=== PATIENT | male | born 1970 | race Caucasian/White ===

== ENCOUNTER → 2024-09-06 06:29 | Day surgery (SDC) | payer OTHER, SELFPAY | LOC: GI 06:29 | PROVIDERS: ATTENDING PHYSICIAN Internal Medicine Gastroenterology | DX: Z12.11 Encounter for screening for malignant neoplasm of colon (principal); K57.30 Diverticulosis of large intestine without perforation or abscess without bleeding; K64.8 Other hemorrhoids | CPT/HCPCS: G0121 ==

== ENCOUNTER → 2025-10-11 13:44 | Outpatient (REF) | payer OTHER, SELFPAY | LOC: REG 13:44 | PROVIDERS: ATTENDING PHYSICIAN Physician Assistant | DX: M54.41 Lumbago with sciatica, right side (principal); M54.42 Lumbago with sciatica, left side | CPT/HCPCS: 72110 ==